=== PATIENT | male | born 1935 | race Caucasian/White ===

== ENCOUNTER 2018-04-21 11:01 | Observation (INO) ==
[2018-04-21] MEDS ORDERED: PANTOPRAZOLE 40 MG VIAL IV ONE (11:12)
[2018-04-21 11:58] LABS: Basophils # (Auto) 0 K/mcL (0.0-0.3); Basophils % (Auto) 0.3 % (0.0-2.0); Eosinophils # (Auto) 0 K/mcL (0.0-0.7); Eosinophils % (Auto) 0.2 % (0.0-7.0); Granulocytes % (Auto) 90.3 % (38.0-78.0); Lymphocytes # (Auto) 0.6 K/mcL (1.5-4.8); Lymphocytes % (Auto) 4.2 % (15.5-49.0); Mean Cell Volume 90.7 fL (80.0-100.0); Mean Corpuscular HGB Conc 33.3 g/dL (31.0-36.0); Mean Corpuscular Hemoglobin 30.2 pg (26.0-34.0); Monocytes # (Auto) 0.7 K/mcL (0.1-0.9); Platelet Count 177 K/mcL (140-440); RBC 4.38 M/mcL (4.50-5.90); Red Cell Distribution Width 13.4 % (11.5-14.5)
[2018-04-21 12:14] LABS: ALT/SGPT 25 U/l (0-40); Albumin 3.9 gm/dL (3.2-5.2); Albumin/Globulin Ratio 1.3 (1.0-2.3); Alkaline Phosphatase 90 U/L (39-117); Blood Urea Nitrogen 21 mg/dl (8-23)
[2018-04-21] MEDS ORDERED: ONDANSETRON 4 MG/2 ML VIAL IV ONE (12:18)
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
[2018-04-21 12:54] LABS: Appearance,Urine HAZY; Bilirubin,Urine NEG (NEG); Color,Urine YELLOW; Glucose,Urine (UA) NEGATIVE (NEG); Leukocyte Esterase,Urine NEG /uL (NEG); Protein,Urine NEG (NEG); Specific Gravity,Urine 1.026 (1.000-1.035); Urine Blood NEG mg/dL (<0.03)
[2018-04-21] MEDS ORDERED: ACETAMINOPHEN 325 MG TABLET PO PRN (16:03)
[2018-04-21] MEDS ORDERED: ONDANSETRON 4 MG/2 ML VIAL IV PRN (16:03)
--- NOTE | 2018-04-21 16:14 | XRay Report ---
CLINICAL INFORMATION: White blood cell count and fever COMPARISON: 02/19/2012 FINDINGS: Heart size, mediastinum and pulmonary vessels are normal. There is minor bibasilar atelectasis or scarring noted - no stefano infiltrates or effusions. IMPRESSION: Minor bibasilar atelectasis otherwise negative Interpreted and Authenticated by: Basil Paez 04/21/18
[2018-04-21] MEDS ORDERED: NITROGLYCERIN 0.4 MG TAB.SUBL SL PRN (16:19)
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
[2018-04-21] MEDS ORDERED: KETAMINE 10 MG/ML ML IV PRN (16:44)
[2018-04-21] MEDS ORDERED: MIDAZOLAM 2 MG/2 ML VIAL IV SCH (16:45)
[2018-04-21] MEDS ORDERED: PROPOFOL 200 MG/20 ML VIAL IV SCH (16:45)
[2018-04-21] MEDS: PANTOPRAZOLE 40 MG VIAL IV SCH (16:46)
[2018-04-21] MEDS ORDERED: PROPOFOL 20 ML IV ONE (17:13)
[2018-04-21] MEDS ORDERED: MIDAZOLAM 2 MG/2 ML VIAL ONE (17:13)
[2018-04-21] MEDS ORDERED: ETHANOLAMINE OLEATE 5% 2 ML AMP IJ ONE (18:33)
[2018-04-21] MEDS: 0.9 % SODIUM CHLORIDE 10 ML SYRINGE IV SCH (20:08)
[2018-04-21] MEDS: CARBIDOPA/LEVODOPA 25/100 TABLET PO SCH (20:08)
[2018-04-21] MEDS ORDERED: SIMVASTATIN 10 MG TABLET PO SCH (21:00)
--- NOTE | 2018-04-21 22:33 | Emergency Department Note ---
ED Note Addendum Note Addendum: I saw this patient with Pamela ALTAMIRANO. Agree with her evaluation management documentation. Additionally I discussed this patient with WILLIAM Shannon on-call. I was involved in decision making to admit
[2018-04-22] MEDS ORDERED: NALOXONE HCL 0.4 MG/ML VIAL ONE (02:06)
[2018-04-22] MEDS: 0.9 % SODIUM CHLORIDE 10 ML SYRINGE IV SCH ×2 (05:29→08:54)
[2018-04-22 06:17] LABS: Basophils # (Auto) 0 K/mcL (0.0-0.3); Basophils % (Auto) 0.2 % (0.0-2.0); Eosinophils # (Auto) 0.1 K/mcL (0.0-0.7); Eosinophils % (Auto) 1.4 % (0.0-7.0); Granulocytes % (Auto) 63.6 % (38.0-78.0); Lymphocytes # (Auto) 1.7 K/mcL (1.5-4.8); Lymphocytes % (Auto) 23.9 % (15.5-49.0); Mean Cell Volume 92.4 fL (80.0-100.0); Mean Corpuscular Hemoglobin 30.5 pg (26.0-34.0); Monocytes # (Auto) 0.8 K/mcL (0.1-0.9); Monocytes % (Auto) 10.9 % (1.0-12.0); Platelet Count 149 K/mcL (140-440); RBC 3.85 M/mcL (4.50-5.90)
--- NOTE | 2018-04-22 07:05 | Operative Note ---
DATE OF OPERATION: 04/21/2018 PREPROCEDURE DIAGNOSIS: Upper GI bleed as evidenced by coffee ground emesis. POSTPROCEDURE DIAGNOSES: 1. 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 2. EGitis, ? reflux. 3. Hiatal hernia. PROCEDURE: Esophagogastroduodenoscopy with control of bleeding and biopsy. INSTRUMENT USED: Olympus ANGEL [id number] endoscope. SPECIMENS OBTAINED: Biopsies from antrum for histopathology and CLOtest. Biopsies from distal esophagus. CLOtest RESULTS: Negative INDICATIONS: The patient is an 82-year-old gentleman whose primary care physician is Dr. Cruz. The patient did 2 or 3 days ago have some emesis of orange fluid. Later, he had coffee ground emesis. He states he has had less emesis today. He did present to the emergency department. Hemoglobin was 94/57 after some time and IV fluids 106/61. Hemoglobin was fairly stable at 13.2, BUN was slightly elevated at 21. The patient does have a new diagnosis of Parkinson's disease. He did have some vague unwell symptoms that may have suggested a viral illness in the recent past. Because of the coffee ground emesis, endoscopy is indicated. INFORMED CONSENT: The procedure was reviewed with the patient. The patient had no further questions and accepts the risks and benefits thereof. One of the risks that were discussed included . Additional risks that were also discussed included bleeding, reaction to medication, possible perforation and possible need for surgery. IV MEDICATIONS USED: Versed 2 and propofol 170. FINDINGS: ESOPHAGUS: Proximal, mid and distal esophagus normal. EG JUNCTION: This was about 37 cm, sometimes closer to 39 cm. Sometimes there was hardly any hiatal hernia, other times it was 2 or 3 cm in size. There was erythema and edema noted. No stricture was seen. No bleeding was seen. Biopsies were taken of the distal esophagus to evaluate for reflux. STOMACH: Cardia, fundus normal. Body, on the anterior wall, there was a 4 mm angiodysplasia that did bleed with some minimal trauma. This was treated with about 1 mL of ethanolamine. It did have some persistent bleeding. Resolution clip was placed, no further significant bleeding was noted. Antrum: This appeared normal. Biopsies were taken to check for Helicobacter, however. Biopsies will be sent to Pathology lab. PYLORUS: Normal. DUODENUM: In the descending limb of the duodenum, there was a tiny 2 or 3 mm angiodysplasia somewhat between folds. This did bleed moderately well for a while, and then it seemed to stop bleeding. I believe we did find it with the injector needle and injected 0.5 mL of ethanolamine. No further bleeding was noted. Otherwise, the descending limb of the duodenum appeared normal. RECOMMENDATIONS: Liquid diet. Increase diet as tolerated. In 2 or 3 weeks I recommend checking the stool for occult blood. If this is positive, repeat EGD may be considered. At this time, I am not recommending a PPI medication. If, however, there is stronger evidence of reflux, some acid suppression may be considered. SEDATION TIME: 17:40 to 18:40. Please refer to the preprocedure nurse's notes, procedure flowsheet, procedure record, and post-procedure assessment for details of the sedation including the pre-, intra-, and post-service work. CRD:indra Job ID: [id number] Doc ID: [id number] Jesus Manuel SPENCER
[2018-04-22 07:07] LABS: ALT/SGPT 10 U/l (0-40); Albumin 3.2 gm/dL (3.2-5.2); Albumin/Globulin Ratio 1.3 (1.0-2.3); Alkaline Phosphatase 74 U/L (39-117); Bilirubin,Direct < 0.2 mg/dL (0.0-0.3); Blood Urea Nitrogen 13 mg/dl (8-23); Gamma Glutamyl Transpeptidase 31 U/L (8-61); Uric Acid 4.8 mg/dL (2.5-8.0)
[2018-04-22] MEDS: PANTOPRAZOLE 40 MG VIAL IV SCH (08:52)
[2018-04-22] MEDS: CARBIDOPA/LEVODOPA 25/100 TABLET PO SCH (08:53)
--- NOTE | 2018-04-22 10:46 | Discharge Summary ---
Medical - DS: Prov Patient information: Note initiated : 04/22/18 at 10:43 am Service Date, if different from initiated Date: [] Patient: Ayo Gaffney 83 y/o M admitted on 04/21/18 for Nausea, Vomiting, Coffee Ground Emesis/GI Bleed. Chief Complaint: [] Date of admission: 04/21/18 15:39 Discharge date: 04/22/18 Primary care physician: Blaise Cruz Admitting clinician: Madhavi Velarde Consults: 04/21/18 12:37 Consult to Physician [CONS] Stat Comment: Consulting Provider: Jesus Manuel Beckett Reason For Exam: Physician to Consult 04/21/18 13:05 Consult to Physician [CONS] Stat Comment: Consulting Provider: Madhavi Velarde Reason For Exam: Physician to Consult Discharging clinician: Madhavi Velarde Medical - DS: Meds - Discharge Medications Active and Home Medications: Home Medications aspirin 81 mg tablet,delayed release 81 mg PO QDAY tab 06/15/15 [History Confirmed 12/17/17 Last Taken Unknown] carbidopa 25 mg-levodopa 100 mg tablet 1 tab PO TID 05/27/17 [History Confirmed 12/17/17 Last Taken Unknown] nitroglycerin 0.4 mg sublingual tablet 0.4 mg SUBLINGUAL Q5-15MIN PRN #100 tab 05/30/17 [Rx Confirmed 12/17/17 Last Taken Unknown] lovastatin 40 mg tablet 40 mg PO QHS #90 tab 03/12/18 [Rx Last Taken Unknown] Medical - DS: Hosp Hospital course: Mr. Gaffney is a 82 year old Male with h/o CAD s/p s tent on asa 81mg, presents to the ER with complaints of 4 days of nausea and vomiting, and 1 day h/o dark coffee ground vomitus. He has also been feeling fatigued, feverish and weak. he denie any acute abdominal pain, byut does have mid epigastric, retrosternal discomfort. The patient has not been able to keep much food down for the last 3- 4 days. He thinks he got some bug from the [place] he went He admits to take a baby aspirin, denies any use of NSAIDs. Agrees to use of Tylenol. The patient denies any black stools no blood in the stools. Denies any alcohol or cigarette use. In the emergency room patient was evaluated, labs showed leukocytosis, stable hemoglobin, gastric contents positive for occult blood. Patient was given IV PPI and GI was consulted she was admitted to telemetry for further monitoring. Patient had EGD done yesterday pm, noted mild esophageal erosion, AVM which the GI provider felt was not the etiology of bleed, hb dropped with hydration, but his stable this AM. He is able to tolerate po diet well, hemodynamially stable, no fever, wbc back to normal. He will be discharged home. GI provider has asked occult stool testing and CBC 1 week from discharge, they have sent orders to the lab. Discharge diagnosis: Nausea/ Vomiting, GI bleed - Time Spent with Patient Total time spent providing and/or coordinating discharge services: Greater than 30 minutes Medical - DS: Exam - Constitutional Vitals: Vital Signs Temp Pulse Pulse Pulse Resp BP BP 04/22/18 08:00 98.0 F 61 16 121/69 04/22/18 04:10 98.8 F 18 116/69 04/22/18 03:53 16 04/22/18 00:40 98.9 F 16 109/64 04/21/18 21:01 65 92/46 04/21/18 20:01 99.0 F 65 16 106/64 04/21/18 19:01 72 136/74 04/21/18 18:56 71 136/70 04/21/18 18:37 70 16 102/54 04/21/18 18:23 99.1 F H 73 16 116/67 04/21/18 18:22 99.1 F H 74 16 107/54 04/21/18 17:46 99.1 F H 73 16 100/52 04/21/18 16:03 99.1 F H 74 16 121/91 04/21/18 15:39 99.1 F H 71 70 16 04/21/18 15:02 79 109/66 04/21/18 15:00 79 106/67 04/21/18 14:56 73 110/68 04/21/18 13:16 85 26 H 100/58 04/21/18 13:01 86 23 H 108/56 04/21/18 12:46 85 24 H 103/57 04/21/18 12:30 85 25 H 106/61 04/21/18 11:02 99.5 F H 98 H 18 94/57 Pulse Ox 04/22/18 08:00 95 04/22/18 04:10 04/22/18 03:53 04/22/18 00:40 93 04/21/18 21:01 96 04/21/18 20:01 94 04/21/18 19:01 95 04/21/18 18:56 96 04/21/18 18:37 93 04/21/18 18:23 93 04/21/18 18:22 93 04/21/18 17:46 93 04/21/18 16:03 93 04/21/18 15:39 93 04/21/18 15:02 94 04/21/18 15:00 93 04/21/18 14:56 89 L 04/21/18 13:16 92 04/21/18 13:01 91 04/21/18 12:46 90 04/21/18 12:30 90 04/21/18 11:02 94 Intake and Output 04/21/18 04/22/18 04/22/18 21:59 05:59 13:59 Intake Total 320 / 320 Output Total 200 / 200 775 / 775 300 / 300 Balance -200 / -200 -775 / -775 20 / 20 Intake: Oral 320 / 320 Output: Void Amount 200 / 200 775 / 775 300 / 300 Other: Meal Breakfast Percent of Meal Consumed 100% # Emes[place] 3 Weight 151 lb 8 oz Additional comments: Constitutional; Afebrile, cooperative, alert, not in distress. Eyes- No icterus, , No periorbital swelling Ears- Ext ear normal, hearing normal to conversation. Neck- Midline trachea, supple Respiratory system: Air Entry equal on both sides, No crackles or wheezing, no rhonchi. CVS- Rate rhythm regular, S1,S2 heard, no gallop, no rub. Abdomen- Soft nontender abdomen, no organomegaly, no tenderness, no guarding or rigidity, PHLEBOTOMY SUPPORT TECH- AOOx3, moving all extremities, no gross focal deficit noted. Medical - DS: Data Labs on day of discharge: Labs from last 24 hours 04/22/18 04/22/18 04/22/18 09:30 04:00 04:00 WBC 7.1 RBC 3.85 L Hgb 12.2 L 11.7 L Hct 36.8 L 35.5 L MCV 92.4 MCH 30.5 MCHC 33.0 RDW 14.0 Plt Count 149 MPV 10.2 Gran % 63.6 Lymph % (Auto) 23.9 [place] % (Auto) 10.9 Eos % (Auto) 1.4 Baso % (Auto) 0.2 Gran # 4.5 Lymph # (Auto) 1.7 [place] # (Auto) 0.8 Eos # (Auto) 0.1 Baso # (Auto) 0 PT INR APTT Sodium 140 Potassium 4.1 Chloride 106 Carbon Dioxide 21 L Anion Gap 13.0 BUN 13 Creatinine 0.8 GFR Calculation 82 Glucose 83 Uric Acid 4.8 Calcium 8.0 L Phosphorus 2.0 L Magnesium 2.2 Total Bilirubin 0.3 Direct Bilirubin < 0.2 GGT 31 AST 29 ALT 10 Alkaline Phosphatase 74 Lactate Dehydrogenase 176 Total Protein 5.6 L Albumin 3.2 Globulin 2.4 Albumin/Globulin Ratio 1.3 Triglycerides 76 Urine Color Urine Appearance Urine pH Ur Specific [place] Urine Protein Urine Glucose (UA) Urine Ketones Urine Occult Blood Urine Nitrate Urine Bilirubin Urine Urobilinogen Ur Leukocyte Esterase 04/21/18 04/21/18 04/21/18 11:48 11:22 11:22 WBC 14.0 H RBC 4.38 L Hgb 13.2 L Hct 39.7 L MCV 90.7 MCH 30.2 MCHC 33.3 RDW 13.4 Plt Count 177 MPV 10.1 Gran % 90.3 H Lymph % (Auto) 4.2 L [place] % (Auto) 5.0 Eos % (Auto) 0.2 Baso % (Auto) 0.3 Gran # 12.6 H Lymph # (Auto) 0.6 L [place] # (Auto) 0.7 Eos # (Auto) 0 Baso # (Auto) 0 PT INR APTT Sodium 135 Potassium 4.0 Chloride 100 Carbon Dioxide 23 Anion Gap 12.0 BUN 21 Creatinine 0.9 GFR Calculation 79 Glucose 145 H Uric Acid Calcium 8.6 Phosphorus Magnesium Total Bilirubin 0.7 Direct Bilirubin GGT AST 45 H ALT 25 Alkaline Phosphatase 90 Lactate Dehydrogenase Total Protein 6.8 Albumin 3.9 Globulin 2.9 Albumin/Globulin Ratio 1.3 Triglycerides Urine Color Yellow Urine Appearance Hazy Urine pH 6.0 Ur Specific [place] 1.026 Urine Protein Neg Urine Glucose (UA) Negative Urine Ketones 5/tr A Urine Occult Blood Neg Urine Nitrate Neg Urine Bilirubin Neg Urine Urobilinogen 2.0 A Ur Leukocyte Esterase Neg 04/21/18 11:20 WBC RBC Hgb Hct MCV MCH MCHC RDW Plt Count MPV Gran % Lymph % (Auto) [place] % (Auto) Eos % (Auto) Baso % (Auto) Gran # Lymph # (Auto) [place] # (Auto) Eos # (Auto) Baso # (Auto) PT 14.5 INR 1.1 APTT 37 Sodium Potassium Chloride Carbon Dioxide Anion Gap BUN Creatinine GFR Calculation Glucose Uric Acid Calcium Phosphorus Magnesium Total Bilirubin Direct Bilirubin GGT AST ALT Alkaline Phosphatase Lactate Dehydrogenase Total Protein Albumin Globulin Albumin/Globulin Ratio Triglycerides Urine Color Urine Appearance Urine pH Ur Specific [place] Urine Protein Urine Glucose (UA) Urine Ketones Urine Occult Blood Urine Nitrate Urine Bilirubin Urine Urobilinogen Ur Leukocyte Esterase Medical - DS: A/P - Patient/Caregiver Discharge Instructions Activity: increase activity as tolerated Diet: Cardiac Additional Instructions: Please follow up with PCP in 1-2 weeks Go to the Lab in 1 week to check your blood and stool test. Dr Mckeon wants to check CBC and stool for blood. Dr Mckeon will call and have you follow up with him if the labs are abnormal. Take all your home medication as before, take aspirin with food. If you notice recurrence of symptoms, blood in stool black stool, blood in vomitus, please go back to the ER stay well hydrated. - Follow up Plan Follow up with: Jesus Manuel Beckett MD [Physician] - (Dr. Beckett has sent an order to the lab at [facility] for a CBC and Stool Occult to be done within 1 week of your discharge. They will call you to schedule a follow up appointment if needed based on these results.) Wilder Cruz MD [Primary Care Provider] - 04/29/18 4:00 pm (Please check in at 3:45) Disposition: Home, Self-Care Prognosis: Fair Rehab Potential: Fair I certify that the patient requires SNF services: No Overall status at discharge: patient is back to baseline Medical - DS: Qual - VTE Deep Vein Thrombosis/Pulmonary Embolism Present on Admission: No
--- NOTE | 2018-04-23 12:11 | Surgical Pathology Report ---
HISTOLOGY SPECIMEN MICROSCOPIC DIAGNOSIS SPECIMEN A - STOMACH, BIOPSY: -- MILD CHRONIC GASTRITIS. -- NO HELICOBACTER TYPE ORGANISMS IDENTIFIED (ALCIAN YELLOW STAIN WITH ADEQUATE TECHNICAL CONTROL). SPECIMEN B - ESOPHAGUS, DISTAL, BIOPSY: -- MILD ACUTE ESOPHAGITIS (UP TO 15 NEUTROPHILS AND 5 EOSINOPHILS/hpf). -- NO FUNGAL ORGANISMS IDENTIFIED (PAS STAIN WITH ADEQUATE TECHNICAL CONTROL). (RLF:djf) CLINICAL HISTORY Vomited orange matter first, them coffee ground matter; weight loss; new diagnosis of Parkinson. 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 GROSS DESCRIPTION Specimen A: Received in formalin labeled rule out coffee ground emesis, are four chaney tissue fragments 0.2 to 0.4 cm. Totally submitted - one cassette. Specimen B: Received in formalin labeled distal esophagus, are four pale chaney tissue fragments less than 0.1 to 0.2 cm. Totally submitted - one cassette. (STS:sln) Electronically Signed by: Garima Rodriguez M.D.
== END 2018-04-22 13:25 | disposition home or self-care (01) ==
LOC: ED 11:01 → ICU 11:01
PROVIDERS: ADMIT Internal Medicine; ATTEND Internal Medicine